=== PATIENT | female | born 1995 | race Caucasian/White ===

== ENCOUNTER 2018-04-23 13:46 | Emergency (ER) | payer OTHER ==
[~2018-04-23] VITALS: Ht 167.6 cm; Wt 81.6 kg
[2018-04-28] MEDS ORDERED: LEVSIN/SL0.125 MG SL (12:19)
[2018-04-28] MEDS ORDERED: [UNRECOGNIZED DRUG - OTHER] PO (12:19)
[2018-04-28] MEDS ORDERED: MAGNESIUM500 MG PO (12:20)
[2018-04-28] MEDS ORDERED: BIOTIN10 MG PO (12:20)
[2018-04-28] MEDS ORDERED: FOLIC ACID1 MG PO (12:20)
[2018-04-28] MEDS ORDERED: OCUVITE SOFTGE1 EACH PO (12:21)
== END 2018-04-23 17:29 | disposition home or self-care (01) ==
LOC: ER 13:46
DX: K29.70 Gastritis, unspecified, without bleeding (principal)

== ENCOUNTER 2018-05-02 05:07 | Day surgery (SDC) | payer OTHER ==
[~2018-05-02 05:07] MED LIST: BIOTIN10 MG PO; FOLIC ACID1 MG PO; LEVSIN/SL0.125 MG SL; MAGNESIUM500 MG PO; OCUVITE SOFTGE1 EACH PO; [UNRECOGNIZED DRUG - OTHER] PO
== END 2018-05-02 12:25 | disposition home or self-care (01) ==
LOC: CIR.AMB 05:07
DX: K80.10 Calculus of gallbladder with chronic cholecystitis without obstruction (principal)

== ENCOUNTER 2018-05-05 23:45 | Emergency (ER) | payer OTHER ==
[~2018-05-05] VITALS: Ht 167.6 cm; Wt 99.8 kg
[2018-05-06] MEDS ORDERED: IRON1TAB4 PO (05:12)
[2018-05-06] MEDS ORDERED: PROVERA2.5 MG PO (05:12)
== END 2018-05-06 05:33 | disposition home or self-care (01) ==
LOC: ER 23:45
DX: N93.8 Other specified abnormal uterine and vaginal bleeding (principal); D64.9 Anemia, unspecified; R55 Syncope and collapse